=== PATIENT | male | born 2000 ===

== ENCOUNTER 2023-10-10 23:13 | Emergency (ER) | payer BC, SELFPAY ==
[2023-10-10 23:18] VITALS: BP 147/86
[2023-10-11 00:13] VITALS: BMI 29.0
--- NOTE | 2023-10-11 01:47 | ED.GENMED ---
History of Present Illness
General
Chief Complaint: Nasal Problem
Source: patient
Exam Limitations: none
Time Seen by Provider: 10/11/23 01:10
Nursing documentation reviewed up to this point in time: agreed with
Travel History
Have you had any contact with someone who has COVID-19?: No
Do you have any symptoms of coronavirus? Fever > 100 degrees, chills, cough, shortness of breath, sore throat, loss of taste or smell, muscle aches, or headache?: No
History of Present Illness
History of Present Illness:
The patient is a pleasant 23-year-old man who reports that he was playing hockey and got hit with a hockey puck at 10:30 PM this evening. The injury occurred just to the right of his nose. He reports he did fall down to the ground but did not hit
his head. He denies any other areas of pain aside from his nasal area. He denies vision changes, dizziness, light sensitivity, nausea, vomiting and headache. Patient has a small superficial laceration just extending along the right side of his
nasal bridge. He denies neck pain. Tetanus up-to-date. Dry nose and right nare
Past History
Past History
ED Past Medical History: None
ED Past Surgical History: None
Social History
Tobacco: Non-smoker
Alcohol: Other
Drug: None
Personal: Other
Living: with family
Employment: Other
Family History
Family History: Other
Review of Systems
Review of Systems
Allergies reviewed?: Yes
All Other Systems: ROS reviewed and negative except as documented in HPI and ROS
Constitutional: Reports no symptoms
EENT: Reports other
Respiratory: Reports no symptoms
Cardiac: Reports no symptoms
ABD/GI: Reports no symptoms
: Reports no symptoms
Musculoskeletal: Reports no symptoms
Skin: Reports no symptoms
Neurological: Reports no symptoms
Endocrine: Reports no symptoms
Hematologic/Lymphatic: Reports no symptoms
Psychiatric: Reports no symptoms
Phy Exam
Physical Exam
Physical Exam:
Physical Exam
General: no apparent distress, not acutely ill
Neck: supple. Nontender. Swelling of right nasal bridge area and mild ecchymosis under right eye. Extraocular muscles intact. PERRL. Dried blood in right nare but when blood cleaned out, no nasal septal hematoma seen
Heart: s1/s2 regular rate and rhythm, no murmur. equal radial pulses. No vertebral spine tenderness
Lungs: no acute respiratory distress. clear bilaterally
Abdomen: Soft, nontender
Neuro: alert and oriented. no focal neurological deficits
Skin: 1 cm laceration extending from right nasal bridge to top of right cheek
Psychiatric: well kept. interactive and cooperative
Extremities: no edema. no calf tenderness. negative homans. good distal pulses
Course
Orders/Labs/Results
Orders:
Orders
10/11/23 01:29
CT Facial Bones W/o Iv Contras Urgent
Comment:
Reason For Exam: injury to R nose area
10/11/23 01:47
Acetaminophen [Tylenol] 1,000 mg PO NOW STA
Vital Signs
Initial and Last Documented VS:
Initial Vital Signs
Temp Pulse Resp BP Pulse Ox
98.1 F 94 16 147/86 99
10/10/23 23:18 10/10/23 23:18 10/10/23 23:18 10/10/23 23:18 10/10/23 23:18
Last Documented Vital Signs
Temp Pulse Resp BP Pulse Ox
98.1 F 67 17 149/79 98
10/10/23 23:18 10/11/23 01:56 10/11/23 01:56 10/11/23 01:56 10/11/23 01:56
Procedures
Laceration Closure
Right Face:
Status of Wound: clean
Size of Wound in cm: 1
Description of Wound Edges: sharp
Preparation: cleaned with saline
Wound exploration: explored to base- no FB
Type of Closure: single layer closure and Dermabond-skin glue
MDM/Problems Addressed
Differential Diagnosis Includes:
Nasal bone contusion, nasal bone fracture, orbital wall fracture
MDM/Problems Addressed:
Patient presents with acute pain and swelling along the right nasal bone area after being hit in the face
Acute Exacerbation and/or Progression of Chronic Illness:
Patient is acutely hypertensive, likely due to pain
Acute Exacerbation and/or Progression of Chronic Illness: HTN
*Radiology
Radiology exam reviewed: radiology read reviewed
*Pulse Oximetry
Patient hypoxic: no
*EKG
Interpreted by ED Provider?: NA
*Sample Room Supervisor Interpretation
Rate: Sample Room Supervisor- N/A
*Critical Care Note
Total Time (30-74mins, 75-104mins- exclusive of procedures): Not Applicable
ED Attending Note
-
Portions of this chart may have been created with voice recognition software.� Occasional wrong word or��sound alike� substitutions may have occurred due to the inherent limitations of voice recognition software.
Discharge Plan
Departure
Patient Disposition: Home (Routine Discharge)
Date of Disposition: 10/11/23
Time of Disposition: 02:43
Patient with high blood pressure during this ER visit?: Yes
Condition: Good
Covid-19: Not Applicable
Discharge Problem:
Closed fracture nasal bone, Laceration of cheek, right
Instructions: Laceration Repair With Glue (DC), Nose Fracture (DC), Nosebleeds (DC), BLOOD PRESSURE
Prescriptions:
No Action
No Current Medications
0
Referrals:
Felipe Rae DO [Family Provider] -
Edmond Jacobs MD [Active] - (Call tomorrow to schedule a follow-up appointment within 1 week)
Activity Restrictions/Additional Instructions:
Take 1000 mg of Tylenol every 4-6 hours for pain. If you are still having pain, you could also take 600 mg of Motrin with food every 6-8 hours for pain in addition to the Tylenol. Apply an ice pack to your nose multiple times a day for 5 to 10
minutes at a time. You could allow the laceration to get wet but please do not rub the area. The glue will dissolve on its own. Please also call [facility] Nose and Throat doctor tomorrow to week a follow-up appointment
Interventions
Interventions:
*Risk Screen - Suicide Last Done: 10/10/23 23:18
*Neglect/Abuse Screening Last Done: 10/10/23 23:18
*ED COVID-19 Vaccine History Last Done: 10/10/23 23:18
ED-EENT Assessment Last Done: 10/11/23 00:14
[2023-10-11] MEDS: TYLENOL 1000 MG PO (01:55)
[2023-10-11 01:56] VITALS: BP 149/79
== END 2023-10-11 02:53 | disposition home or self-care (01) ==
LOC: EMR 23:13
PROVIDERS: EMERGENCY PHYSICIAN Emergency Medicine; FAMILY PHYSICIAN Family Medicine
DX: S01.411A Laceration without foreign body of right cheek and temporomandibular area, initial encounter (principal); S02.2XXA Fracture of nasal bones, initial encounter for closed fracture; W19.XXXA Unspecified fall, initial encounter; Y93.22 Activity, ice hockey; I10 Essential (primary) hypertension; F32.A Depression, unspecified
CPT/HCPCS: 99284; 12011; 70486

== ENCOUNTER → 2024-03-22 12:27 | Outpatient (REF) | payer OTHER, SELFPAY | LOC: MRI 3T 12:27 | PROVIDERS: ATTENDING PHYSICIAN Orthopaedic Surgery; FAMILY PHYSICIAN Family Medicine | DX: M25.531 Pain in right wrist (principal) | CPT/HCPCS: 73221 ==